=== PATIENT | male | born 1965 | race Two or more races ===

== ENCOUNTER 2022-04-20 05:50 | Day surgery (SDC) | payer OTHER ==
[~2022-04-20 05:50] MED LIST: ATACAND32 MG PO; ATIVAN2 M1 PO; DOXAZOSIN MESYLA4 MG PO; FENOFIBRATE150 MG PO; LIPITOR20 MG PO; SEROQUEL50 MG PO; SERTRALINE HCL100 MG PO
== END 2022-04-20 16:10 | disposition home or self-care (01) ==
LOC: CIR.AMB 05:50
PROVIDERS: ATTEND Otolaryngology Otology & Neurotology
DX: H74.12 Adhesive left middle ear disease (principal); Z88.0 Allergy status to penicillin; I10 Essential (primary) hypertension; Z86.16 Personal history of COVID-19; H90.12 Conductive hearing loss, unilateral, left ear, with unrestricted hearing on the contralateral side; Z20.822 Contact with and (suspected) exposure to COVID-19